=== PATIENT | female | born 1960 | race Caucasian/White ===

== ENCOUNTER → 2020-08-28 | Outpatient (CLI) | payer OTHER ==
[2020-08-28 17:01] LABS: Anisocytosis Slight; Basophils % (A) 0 %; Eosinophils # (A) 0.4 k/uL (0-0.7); Eosinophils % (A) 3 %; HGB 9.2 gm/dL (11.4-16.0); Hypochromasia Marked; Lymphocytes # (A) 0.9 k/uL (1.0-4.8); Lymphocytes % (A) 8 %; MCH 22.6 pg (25.0-35.0); MCHC 29.7 g/dL (31.0-37.0); Mean Platelet Volume 7.2; Microcytosis Slight; Monocytes # (A) 0.3 k/uL (0-1.0); Monocytes % (A) 3 %; Neutrophils # (A) 9.3 k/uL (1.3-7.7); Neutrophils % (A) 85 %; Platelet Count 478 k/uL (150-450); RBC 4.07 m/uL (3.80-5.40); RDW 17.3 % (11.5-15.5); WBC 10.9 k/uL (3.8-10.6)
[2020-08-28 17:05] LABS: INR 1.1 (<1.2); Partial Thromboplastin Time 23.9 sec (22.0-30.0); Prothrombin Time 11.5 sec (9.0-12.0)
[2020-08-28 17:07] LABS: MCV 76.1 fL (80.0-100.0)
[2020-08-28 17:08] LABS: African American GFR (CKD) >90 (>60 ml/min/1.73 sqM); Anion Gap 10 mmol/L; Blood Urea Nitrogen 13 mg/dL (7-17); Carbon Dioxide 26 mmol/L (22-30); Chloride 99 mmol/L (98-107); Glucose 116 mg/dL (74-99); Non-African American GFR(CKD) >90 (>60 ml/min/1.73 sqM); Sodium 135 mmol/L (137-145)
[2020-08-28 17:09] LABS: Potassium 5.4 mmol/L (3.5-5.1)
== END | disposition home or self-care (01) ==
LOC: LABPAT 16:01
PROVIDERS: ATTEND Thoracic Surgery (Cardiothoracic Vascular Surgery)
DX: Z01.812 Encounter for preprocedural laboratory examination (principal); Z20.822 Contact with and (suspected) exposure to COVID-19; C85.12 Unspecified B-cell lymphoma, intrathoracic lymph nodes
CPT/HCPCS: 80051; 82565; 82947; 84520; 85025; 85610; 85730; 36415; U0003; C9803; U0005

== ENCOUNTER 2020-08-31 11:41 | Day surgery (SDC) | payer OTHER ==
[2020-08-30 10:29] VITALS: BMI 24.3
[~2020-08-31 11:41] MED LIST: DEXAMETHASONE SOD PHOSPHATE 4 MG/ML 1 ML VIAL IV ONE; LIDOCAINE 1% (10MG/ML) FOR IV START INTRADERMA PRN; MIDAZOLAM 2 MG/2 ML VIAL IV PRN; ONDANSETRON 4 MG/2 ML VIAL IVP ONE
[2020-08-31 12:44] LABS: Glucose,Whole Blood 135 mg/dL (75-99)
[2020-08-31] MEDS: LACTATED RINGERS 1,000 ML IV SCH ×2 (12:45→14:46)
[2020-08-31] MEDS ORDERED: NEOSTIGMINE 1 MG/ML 10 ML VIAL ONE (14:41)
[2020-08-31] MEDS ORDERED: SUCCINYLCHOLINE CHLORIDE 100 MG/5 ML SYR IV ONE (14:41)
[2020-08-31] MEDS ORDERED: LIDOCAINE 1% INJ 10MG/ML (20 ML MDV) ONE (14:41)
[2020-08-31] MEDS ORDERED: fentaNYL (PF) 50 MCG/ML 2 ML AMP ONE (14:41)
[2020-08-31] MEDS ORDERED: PROPOFOL 10 MG/ML 20 ML VIAL IV ONE (14:41)
[2020-08-31] MEDS ORDERED: PHENYLEPHRINE-0.9% NACL SYG 1,000 MCG/10 ML SYRINGE ONE (14:41)
[2020-08-31] MEDS ORDERED: GLYCOPYRROLATE 0.2 MG/ML 2 ML VIAL ONE (14:41)
[2020-08-31] MEDS ORDERED: ROCURONIUM 10 MG/ML (5 ML VIAL) IV ONE (14:41)
[2020-08-31] MEDS ORDERED: MIDAZOLAM 2 MG/2 ML VIAL ONE (14:41)
[2020-08-31] MEDS ORDERED: GELATIN SPONGE,ABSORB (LARGE) 1 EACH SPONGE TOPICAL ONE (15:22)
[2020-08-31] MEDS ORDERED: THROMBIN (BOVINE) 5,000 UNIT VIAL TOPICAL ONE (15:22)
[2020-08-31 15:51] VITALS: TEMP 98.4
--- NOTE | 2020-08-31 15:52 | P.OP ---
Date of Procedure: 08/31/20 Preoperative Diagnosis: Mediastinal lymphadenopathy Postoperative Diagnosis: Same Procedure(s) Performed: Mediastinoscopy with lymph node biopsy Anesthesia: MICHAELA Surgeon: Silvano Avila Estimated Blood Loss (ml): 5 IV fluids (ml): 500 Urine output (ml): 0 Pathology: other (Pretracheal lymph node, right paratracheal lymph node sent for cultures and path and flow cytometry) Condition: stable Disposition: PACU Indications for Procedure: 59-year-old female with several month history of fevers and malaise weight loss cough presents with mediastinal adenopathy positive uptake on PET there was also noted axillary adenopathy and she had undergone lymph node biopsy which showed only reactive lymph nodes he was referred for mediastinoscopy by Dr. Abreu Operative Findings: Enlarged right paratracheal lymph nodes Description of Procedure: Patient was brought to the operating room placed supine on the operating table anesthetized and intubated the neck was extended and the patient was appropriately positioned for mediastinoscopy. The neck and anterior torso were sterilely prepped and draped. After timeout a transverse incision was made at the base the neck across the midline. Dissection was carried down through subcutaneous tissue and vertically in the midline between the strap muscles. Small pretracheal lymph node was encountered and sent for permanent section. Dissection was carried down to the pretracheal plane and dissection carried along the pretracheal plane into the mediastinum. Lung dissection with a finger along the anterior trachea into the mediastinum was performed and the mediastinoscope was introduced. Dissection was carried down to the tracheal bifurcation. Pulmonary artery was identified. We moved proximally and discovered some markedly enlarged right paratracheal lymph nodes. These were somewhat anthracotic but fairly medially in appearance. Multiple biopsies were obtained. A portion was sent for culture including routine acid-fast and fungal cultures. The bulk of the specimen was sent for permanent section and flow cytometry. Some Gelfoam and thrombin was placed in the bed of the lymph node and it was packed with a gauze. The gauze and Gelfoam were removed and good hemostasis was noted. Mediastinoscope was withdrawn and the strap muscles were reapproximated with 3-0 Vicryl. The subcutaneous tissue was closed with 3-0 Vicryl. Subcuticular tissue was closed with 3-0 Vicryl. Skin glue and dry sterile dressings were applied. The patient was awakened and transferred to recovery in stable condition. Plan - Discharge Summary Discharge Rx Participant: No New Discharge Prescriptions: Continue Montelukast Sodium [Singulair] 10 mg PO HS atenoloL [Atenolol] 12.5 mg PO QAM predniSONE 5 mg PO QAM Levothyroxine Sodium [Synthroid] 25 mcg PO QAM Zolpidem Tartrate [Ambien] 5 mg PO HS PRN PRN Reason: Insomnia Benzonatate [Tessalon Perles] 100 mg PO DAILY Famotidine 20 mg PO HS Cetirizine HCl [Zyrtec] 10 mg PO DAILY Ferrous Sulfate [Iron (65 MG Elemental)] 325 mg PO DAILY Cyanocobalamin (Vitamin B-12) [Vitamin B-12] 1,000 mcg PO DAILY Folic Acid 1 mg PO DAILY Discharge Medication List Benzonatate [Tessalon Perles] 100 mg PO DAILY 08/30/20 [History] Cetirizine HCl [Zyrtec] 10 mg PO DAILY 08/30/20 [History] Cyanocobalamin (Vitamin B-12) [Vitamin B-12] 1,000 mcg PO DAILY 08/30/20 [History] Famotidine 20 mg PO HS 08/30/20 [History] Ferrous Sulfate [Iron (65 MG Elemental)] 325 mg PO DAILY 08/30/20 [History] Folic Acid 1 mg PO DAILY 08/30/20 [History] Levothyroxine Sodium [Synthroid] 25 mcg PO QAM 08/30/20 [History] Montelukast Sodium [Singulair] 10 mg PO HS 08/30/20 [History] Zolpidem Tartrate [Ambien] 5 mg PO HS PRN 08/30/20 [History] atenoloL [Atenolol] 12.5 mg PO QAM 08/30/20 [History] predniSONE 5 mg PO QAM 08/30/20 [History] Follow up Appointment(s)/Referral(s): Damion Abreu MD [STAFF PHYSICIAN] - 1 Week Silvano Avila MD [STAFF PHYSICIAN] - 1 Week Jj Mejias MD [REFERRING] - As Needed Activity/Diet/Wound Care/Special Instructions: Keep dressing for 24 hours. After that, may remove and shower daily. No lotions/powders/ointments on incision. Any fever over 101F or purulent drainage from incision should be reported to surgery office @ Discharge Disposition: HOME SELF-CARE
[2020-08-31] MEDS: HYDROmorphone 0.5 MG/0.5 ML SYRINGE IVP PRN ×2 (15:58→16:20)
[2020-08-31] MEDS ORDERED: LACTATED RINGERS 1,000 ML IV ONE (16:23)
[2020-08-31 17:16] VITALS: PULSE 76
[2020-08-31 17:27] VITALS: BP 98/58; RESP 20
== END 2020-08-31 17:40 | disposition home or self-care (01) ==
LOC: OR 11:41
PROVIDERS: ATTEND Thoracic Surgery (Cardiothoracic Vascular Surgery)
DX: R59.0 Localized enlarged lymph nodes (principal); I10 Essential (primary) hypertension; K21.9 Gastro-esophageal reflux disease without esophagitis; Z79.899 Other long term (current) drug therapy; Z79.52 Long term (current) use of systemic steroids; E07.9 Disorder of thyroid, unspecified
CPT/HCPCS: 86900 ×2; 86901 ×2; 84132; 86850 ×2; 86870 ×2; 86880 ×2; 88342; 88307; 88341; 36415; 39402; J2250; J1100; J2710; J0690; J2405; J2001; J3010; J2370; J0330; J2704; J1170